=== PATIENT | female | born 1955 | race Caucasian/White ===

== ENCOUNTER 2016-06-16 08:34 | Day surgery (SDC) | payer OTHER ==
[2016-06-08 12:33] VITALS: BMI 27.3
[2016-06-16] MEDS ORDERED: PROPOFOL 20 ML ONE ×2 (09:44)
[2016-06-16 12:18] VITALS: TEMP 97.8
[2016-06-16 12:26] VITALS: BP 109/67; PULSE 56
--- NOTE | 2016-06-19 15:19 | PATH ---
Surgical Pathology Report Patient Name: JASON RESENDIZ [facility]. Rec. #: [id number] /Age/Gender: 1955 (Age: 61) / F Account: [id number] Location: [facility]-ENDOSCOPY Taken: 06/16/2016 Received: 06/16/2016 Reported: 06/19/2016 Physicians: Xiomara Mcclellan M.D. Specimen(s) Received A: ASCENDING POLYP B: BX DUODENUM C: BX ANTRUM D: GASTRIC POLYPS E: BX GE JUNCTION Clinical History History of polyp, GERD Colon polyps, gastric polyps, rule out Mitchell's Final Diagnosis A. ASCENDING COLON, POLYP, BIOPSY: TUBULAR ADENOMA. B. DUODENUM, BIOPSY: DUODENAL MUCOSA WITH NO PATHOLOGIC FINDINGS. C. ANTRUM, BIOPSY: MILD CHRONIC GASTRITIS. IMMUNOSTAIN IS NEGATIVE FOR H. PYLORI ORGANISMS. D. GASTRIC POLYPS, BIOPSY: GASTRIC FUNDIC GLAND POLYPS. IMMUNOSTAIN IS NEGATIVE FOR H. PYLORI ORGANISMS. E. GE JUNCTION, BIOPSY: ESOPHAGOGASTRIC (SQUAMOCOLUMNAR) MUCOSA SHOWING MODERATE CHRONIC INFLAMMATION WITH FEATURES OF REFLUX ESOPHAGITIS. NEGATIVE FOR INTESTINAL METAPLASIA. Electronically Signed Alisa Denton M.D. Gross Description A. Received in formalin, labeled "ascending polyp" are 2 suazo, irregular portions of soft tissue measuring 0.1 and 0.3 cm. in greatest dimension. The specimens are submitted in toto in one cassette. B. Received in formalin, labeled "duodenum" are 2 suazo, irregular portions of soft tissue measuring 0.4 and 0.6 cm. in greatest dimension. The specimens are submitted in toto in one cassette. C. Received in formalin, labeled "antrum" is a suazo, irregular portion of soft tissue measuring 0.4 cm. in greatest dimension. The specimen is submitted in toto in one cassette. D. Received in formalin, labeled "gastric polyps" are 3 suazo, irregular portions of soft tissue ranging from 0.2-0.5 cm. in greatest dimension. The specimens are submitted in toto in one cassette. E. Received in formalin, labeled "GE junction" are 2 suazo, irregular portions of soft tissue measuring 0.3 and 0.4 cm. in greatest dimension. The specimens are submitted in toto in one cassette. 06/16/201606/16/2016
== END 2016-06-16 12:25 | disposition home or self-care (01) ==
LOC: FASU-ENDO 08:34
PROVIDERS: ATTEND Internal Medicine
PROC: 0DB98ZX Excision of Duodenum, Via Natural or Artificial Opening Endoscopic, Diagnostic (ICD-10-PCS; 2016-06-16)
PROC: 0DB68ZX Excision of Stomach, Via Natural or Artificial Opening Endoscopic, Diagnostic (ICD-10-PCS; 2016-06-16)
PROC: 0DB58ZX Excision of Esophagus, Via Natural or Artificial Opening Endoscopic, Diagnostic (ICD-10-PCS; 2016-06-16)
PROC: 0DBK8ZX Excision of Ascending Colon, Via Natural or Artificial Opening Endoscopic, Diagnostic (ICD-10-PCS; principal; 2016-06-16 10:20)
DX: Z86.010 Personal history of colon polyps (principal); K64.8 Other hemorrhoids; K44.9 Diaphragmatic hernia without obstruction or gangrene; K31.7 Polyp of stomach and duodenum
CPT/HCPCS: 88305-TC; 88342-TC

== ENCOUNTER 2023-12-22 10:51 | Emergency (ER) | payer BC, OTHER ==
[2023-12-22 10:56] VITALS: BP 129/84; PULSE 79; RESP 15; TEMP 98.2; BMI 25.9
[2023-12-22] MEDS ORDERED: IBUPROFEN 400 MG TABLET (FP) PO ONE (11:53)
[2023-12-22] MEDS ORDERED: MAG HYDROX/AL HYDROX/SIMETH 30 ML UNIT-DOSE CUP ONE (11:54)
[2023-12-22] MEDS ORDERED: FAMOTIDINE 20 MG TABLET ONE (11:54)
[2023-12-22] MEDS ORDERED: LIDOCAINE 5% TOPICAL PATCH ONE (11:54)
[2023-12-22] MEDS: MAG HYDROX/AL HYDROX/SIMETH 30 ML UNIT-DOSE CUP PO ONE (12:10)
[2023-12-22] MEDS: FAMOTIDINE 20 MG TABLET PO ONE (12:10)
[2023-12-22] MEDS: LIDOCAINE 5% TOPICAL PATCH TP ONE (12:15)
[2023-12-22] MEDS: IBUPROFEN 400 MG TABLET (FP) PO PRN (12:16)
[2023-12-22 12:28] LABS: HEMATOCRIT 40.3 % (32.4-45.2); MCH 27.4 pg (25.7-33.7); MCHC 32.3 g/dl (32.0-36.0); MEAN CELL VOLUME 84.8 fl (80-96); PLATELET COUNT 251.8 10^3/uL (134-434); RBC 4.75 10^6/uL (3.60-5.2); RDW 15.6 % (11.6-15.6); WHITE BLOOD COUNT 6.8 10^3/uL (4.0-10.8)
[2023-12-22 12:30] LABS: ALBUMIN 4.3 g/dl (3.4-5.0); BILIRUBIN,TOTAL 0.7 mg/dl (0.2-1); CALCIUM 9.5 mg/dl (8.5-10.1); CREATININE 0.7 mg/dl (0.6-1.3); POTASSIUM 4.2 mmol/L (3.5-5.1); TOT PROT 6.8 g/dl (6.4-8.2)
[2023-12-22 12:36] LABS: PLATELET ESTIMATE ADEQUATE
[2023-12-22 13:13] LABS: EPITHELIAL CELLS 0-5 /hpf
[2023-12-22] MEDS ORDERED: LIDOCAINE PATCH REMOVAL MC SCH (22:00)
== END 2023-12-22 13:25 | disposition home or self-care (01) ==
LOC: FER 10:51
DX: M54.50 Low back pain, unspecified (principal); R10.13 Epigastric pain; R11.0 Nausea
CPT/HCPCS: 36415; 80053; 81003; 81015; 84484; 85025; 87086; 93005; 99284-25